=== PATIENT | male | born 1955 | race Caucasian/White ===

== ENCOUNTER 2019-02-07 19:33 | Emergency (ER) | payer MEDICARE, MEDICAID ==
[2019-02-07] MEDS ORDERED: Ketorolac 60 MG/2 ML SDV IM ONE (20:11)
--- NOTE | 2019-02-07 20:14 | EDM.PDOC ---
ED HPI GENERAL MEDICAL PROBLEM - General Chief Complaint: Chest Pain Stated Complaint: CHEST PAINS Time Seen by Provider: 02/07/19 20:11 Source of Information: Reports: Patient, Old Records, RN Notes Reviewed History Limitations: Reports: No Limitations - History of Present Illness INITIAL COMMENTS - FREE TEXT/NARRATIVE: 63-year-old gentleman presents to emergency department today complaint of chest pain pain gets worse with a deep breath and then exacerbated by letting his breath out so intense to take shallow breaths. He is not nauseated no diaphoresis she does feel short of breath. He recently had an extensive cardiac workup done 15 days prior for chest pain was admitted to [facility]. Workup included stress test myocardial perfusion test which was negative as well as CT scan of the chest to rule out pulmonary embolism also negative consultation with cardiology and serial troponins which were all negative, felt the chest pain was probably not cardiac in nature. Treatments INDUSTRIAL RADIOGRAPHER: Reports: Acetaminophen, EKG Left Chest Pain Score (Numeric/FACES): 5 - Related Data Allergies Allergy/AdvReac Type Severity Reaction Status Date / Time bee venom protein (honey bee) Allergy Swelling Verified 02/07/19 19:42 ibuprofen [From Advil] Allergy Rash Verified 02/07/19 19:42 morphine Allergy Cannot Verified 02/07/19 19:42 Remember Home Meds: Home Meds Acetaminophen [Tylenol Extra Strength] 100 mg PO Q4H PRN 02/07/19 [History] Lisinopril 10 mg PO DAILY 02/07/19 [History] Mg Trisilicate/AlH/NahCO3/AA [Gaviscon 80-14.2 MG] 2 tab PO BID 02/07/19 [ History] Omeprazole 20 mg PO DAILY 02/07/19 [History] Past Medical History HEENT History: Reports: Impaired Vision Gastrointestinal History: Reports: Other (See Below) Other Gastrointestinal History: gastric reflux Psychiatric History: Reports: Addiction, Other (See Below) Other Psychiatric History: Meth, 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 - Infectious Disease History Infectious Disease History: Reports: Chicken Pox - Past Surgical History Musculoskeletal Surgical History: Reports: Other (See Below) Other Musculoskeletal Surgeries/Procedures:: Fussed l ankle r hip replacement x 2 r shoulder surgery lead r neck Social & Family History - Tobacco Use Smoking Status *Q: Current Every Day Smoker Years of Tobacco use: 25 Packs/Tins Daily: 0.2 Used Tobacco, but Quit: No Second Hand Smoke Exposure: Yes - Caffeine Use Caffeine Use: Reports: Coffee - Alcohol Use Days Per Week of Alcohol Use: 0 - Recreational Drug Use Recreational Drug Use: Yes Drug Use in Last 12 Months: Yes Recreational Drug Type: Reports: Marijuana/Hashish, Methamphetamine Recreational Drug Use Frequency: Daily ED ROS GENERAL - Review of Systems Review Of Systems: See Below Constitutional: Reports: No Symptoms HEENT: Reports: No Symptoms Respiratory: Reports: Shortness of Breath Cardiovascular: Reports: Chest Pain GI/Abdominal: Reports: No Symptoms ED EXAM, GENERAL - Physical Exam Exam: See Below Exam Limited By: No Limitations General Appearance: Alert, WD/WN, No Apparent Distress Throat/Mouth: No Airway Compromise Neck: Normal Inspection, Supple, Non-Tender, Full Range of Motion Respiratory/Chest: No Respiratory Distress, Lungs Clear, Normal Breath Sounds, No Accessory Muscle Use, Chest Non-Tender Cardiovascular: Regular Rate, Rhythm, No Murmur GI/Abdominal: Soft, Non-Tender Course - Vital Signs Last Recorded V/S: Last Vital Signs Temp 98.0 F 02/07/19 19:33 Pulse 70 02/07/19 21:35 Resp 20 02/07/19 21:13 BP 159/68 H 02/07/19 21:35 Pulse Ox 96 02/07/19 21:35 - Orders/Labs/Meds Orders: Active Orders 24 hr Category Date Time Status Cardiac Monitoring [RC] .As Directed Care 02/07/19 20:10 Active Labs: Laboratory Tests 02/07/19 02/07/19 02/07/19 Range/Units 20:23 20:23 20:23 WBC 8.2 (4.5-11.0) K/uL RBC 4.27 L (4.30-5.90) M/uL Hgb 13.1 (12.0-15.0) g/dL Hct 39.1 L (40.0-54.0) % MCV 92 (80-98) fL MCH 31 (27-31) pg MCHC 34 (32-36) % Plt Count 258 (150-400) K/uL Neut % (Auto) 60 (36-66) % Lymph % (Auto) 27 (24-44) % [place] % (Auto) 10 H (2-6) % Eos % (Auto) 2 (2-4) % Baso % (Auto) 1 (0-1) % D-Dimer, Quantitative < 100 (0.0-400.0) ng/mL Sodium 141 (140-148) mmol/L Potassium 4.1 (3.6-5.2) mmol/L Chloride 106 (100-108) mmol/L Carbon Dioxide 27 (21-32) mmol/L Anion Gap 8.4 (5.0-14.0) mmol/L BUN 25 H (7-18) mg/dL Creatinine 1.0 (0.8-1.3) mg/dL Est Cr Clr Drug Dosing 70.00 mL/min Estimated GFR (MDRD) > 60 (>60) Glucose 110 H (74-106) mg/dL Calcium 8.7 (8.5-10.1) mg/dL Total Bilirubin 0.2 (0.2-1.0) mg/dL AST 83 H (15-37) U/L ALT 186 H (12-78) U/L Alkaline Phosphatase 63 (46-116) U/L CK-MB (CK-2) 2.3 (0-3.6) mg/mL Troponin I < 0.017 (0.000-0.056) ng/mL Total Protein 6.9 (6.4-8.2) g/dL Albumin 3.4 (3.4-5.0) g/dL Globulin 3.5 (2.3-3.5) g/dL Albumin/Globulin Ratio 1.0 L (1.2-2.2) Lipase 197 (73-393) U/L Meds: Medications Discontinued Medications Generic Name Dose Route Start Last Admin Trade Name Jorgeq PRN Reason Stop Dose Admin Ketorolac Tromethamine 60 mg 02/07/19 20:11 02/07/19 20:19 Toradol IM 02/07/19 20:12 60 mg ONETIME ONE Administration Departure - Departure Time of Disposition: 21:59 Disposition: DC/Tfer to Inpt Rehab Fac 62 Reason for Transfer *Q: Other Condition: Fair Clinical Impression: Pleurisy Referrals: PCP,None [Primary Care Provider] - Forms: ED Department Discharge Additional Instructions: Recommend ibuprofen 600 mg 3 times a day for the next 3-4 days, follow-up primary care in 3-4 days if no improvement - My Orders Last 24 Hours: My Active Orders 02/07/19 20:10 Cardiac Monitoring [RC] .As Directed - Assessment/Plan Last 24 Hours: My Active Orders 02/07/19 20:10 Cardiac Monitoring [RC] .As Directed Plan: Assessment Acuity = acute Site and laterality = pleurisy Etiology = unknown etiology Manifestations = none Location of injury = Home Lab values = CBC unremarkable AST elevated 83 PLT elevated 86 consistent elevated liver enzymes, troponin CK-MB d-dimer all negative chest x-ray process EKG done EMS demonstrates normal sinus rhythm no signs of ischemia Plan He had good improvement with Toradol provided in the ED plan to do ibuprofen 600 mg 3 times a day for the next couple of days until improvement follow-up primary care 3-5 days if not better This note was dictated using [employer] voice recognition software please call with any questions on syntax or grammar.
--- NOTE | 2019-02-07 21:45 | CRLCR ---
INDICATION: Chest pain TECHNIQUE: Chest 1 view COMPARISON: None FINDINGS: Cardiovascular and mediastinum: Heart size and vasculature are normal in caliber and appearance. Lungs and pleural spaces: Lungs are clear. No sign of infiltrate or mass. No sign of pleural effusion. No pneumothorax. Bones and soft tissues: No significant findings. IMPRESSION: No acute or significant findings. Dictated by Isidoro Garza MD @ Feb 07 2019 9:44PM Signed by Dr. Isidoro Garza @ Feb 07 2019 9:44PM
== END 2019-02-07 22:24 ==
LOC: JP.ED 19:33
DX: R09.1 Pleurisy (principal); F17.210 Nicotine dependence, cigarettes, uncomplicated; Z79.899 Other long term (current) drug therapy; Z91.030 Bee allergy status; Z88.5 Allergy status to narcotic agent
CPT/HCPCS: 36415; 71045; 80053; 82553; 83690; 84484; 85025; 85379; 96372; 99284; 99285; J1885

== ENCOUNTER 2020-11-24 23:46 | Observation (INO) | payer MEDICAID, MEDICARE ==
[2020-11-24] MEDS ORDERED: Sodium Chloride 0.9% 10 ML Syringe FLUSH PRN (23:48)
[2020-11-24] MEDS ORDERED: Sodium Chloride 0.9% 500 ML IV ONE (23:48)
--- NOTE | 2020-11-25 00:06 | EDM.PDOC ---
ED HPI GENERAL MEDICAL PROBLEM - General Chief Complaint: Neuro Symptoms/Deficits Stated Complaint: MEDICAL VIA [place] Time Seen by Provider: 11/24/20 23:47 Source of Information: Reports: Patient, EMS History Limitations: Reports: No Limitations - History of Present Illness INITIAL COMMENTS - FREE TEXT/NARRATIVE: Edward is a 65-year-old male presenting from [facility] via [facility] for evaluation of acute onset of left-sided facial and left upper extremity numbness and left facial droop. The patient started having symptoms tonight and went to the nurse at [facility] who notified EMS as a possible stroke. The patient has had several episodes similarly that have only lasted a few seconds at a time. This is persisted for more than half an hour. Patient has a history of methamphetamine use but has been in [facility] detox and treatment since 11/19/2020. The initial [place] stroke score reported by EMS was negative, however, upon arrival he has a significant facial droop and new sided numbness so I called a code stroke. The patient was in directly down to CT for a CT of the head without contrast. She will NIH stroke score is 2 with one point being for facial droop and the other for the left upper extremity numbness. Patient is vitally stable. - Related Data Allergies Allergy/AdvReac Type Severity Reaction Status Date / Time bee venom protein (honey bee) Allergy Swelling Verified 11/25/20 00:02 ibuprofen [From Advil] Allergy Rash Verified 11/25/20 00:02 morphine Allergy Cannot Verified 11/25/20 00:02 Remember Home Meds: Home Meds Acetaminophen [Tylenol Extra Strength] 100 mg PO Q4H PRN 02/07/19 [History] Lisinopril 10 mg PO DAILY 02/07/19 [History] Celecoxib [CeleBREX] 200 mg PO DAILY 11/25/20 [History] Past Medical History HEENT History: Reports: Impaired Vision Gastrointestinal History: Reports: Other (See Below) Other Gastrointestinal History: gastric reflux Psychiatric History: Reports: Addiction, Other (See Below) Other Psychiatric History: Meth, 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 - Infectious Disease History Infectious Disease History: Reports: Chicken Pox - Past Surgical History Musculoskeletal Surgical History: Reports: Other (See Below) Other Musculoskeletal Surgeries/Procedures:: Fussed l ankle r hip replacement x 2 r shoulder surgery lead r neck Social & Family History - Caffeine Use Caffeine Use: Reports: Coffee ED ROS GENERAL - Review of Systems Review Of Systems: See Below Constitutional: Reports: No Symptoms HEENT: Reports: No Symptoms Respiratory: Reports: No Symptoms Cardiovascular: Reports: No Symptoms Endocrine: Reports: No Symptoms GI/Abdominal: Reports: No Symptoms : Reports: No Symptoms Musculoskeletal: Reports: No Symptoms Skin: Reports: No Symptoms Neurological: Reports: Numbness (Left face and left upper extremity), Paresthesia (Upper extremity), Weakness (Facial droop on left with loss of nasolabial fold and asymmetric smile). Denies: Difficulty Walking Psychiatric: Reports: No Symptoms Hematologic/Lymphatic: Reports: No Symptoms Immunologic: Reports: No Symptoms ED EXAM, NEURO - Physical Exam Exam: See Below Exam Limited By: No Limitations General Appearance: Alert, Anxious Eye Exam: Bilateral Eye: EOMI, PERRL Throat/Mouth: Normal Inspection, Normal Lips, Normal Oropharynx, Normal Voice, No Airway Compromise Head Exam: Atraumatic, Normocephalic Neck: Normal Inspection, Supple, Non-Tender, Full Range of Motion. No: Carotid Bruit Respiratory/Chest: No Respiratory Distress, Lungs Clear, Normal Breath Sounds Cardiovascular: Normal Peripheral Pulses, Regular Rate, Rhythm GI/Abdominal: Normal Bowel Sounds, Soft, Non-Tender Neurological: Alert, Normal Dorsiflexion, Normal Plantar Flexion, Normal Gait, Normal Reflexes, Oriented x 3, Abnormal Light Touch (Decreased sensation in the left face excluding the forehead and left upper extremity.), Abnormal Motor (Asymmetric smile and loss of nasolabial fold.) Back Exam: Normal Inspection Extremities: Normal Inspection, Normal Range of Motion Psychiatric: Anxious Skin Exam: Warm, Dry, Intact, Normal Color #1 Interpretation EKG Date: 11/25/20 Time: 00:22 Rhythm: NSR Rate (Beats/Min): 80 [place]: Normal P-Wave: Present QRS: Normal ST-T: Normal QT: Normal Comparison: NA - No Prior EKG Course - Vital Signs Last Recorded V/S: Last Vital Signs Temp 36.6 C 11/25/20 00:06 Pulse 68 11/25/20 02:15 Resp 19 11/25/20 02:15 BP 129/57 L 11/25/20 02:15 Pulse Ox 97 11/25/20 02:15 - Orders/Labs/Meds Orders: Active Orders 24 hr Category Date Time Status Assess Neurological Status [RC] CONTINUOUS Care 11/24/20 23:48 Active Blood Glucose Check, Bedside [RC] STAT Care 11/24/20 23:48 Active Cardiac Monitoring [RC] CONTINUOUS Care 11/24/20 23:48 Active Communication Order [RC] STAT Care 11/24/20 23:48 Active EKG Documentation Completion [RC] ASDIRECTED Care 11/24/20 23:48 Active Height and Weight [RC] UPON Care 11/24/20 23:48 Active NIH Stroke Scale [RC] Q15M Care 11/24/20 23:48 Active NIH Stroke Scale [RC] STAT Care 11/24/20 23:48 Active Nursing Bedside Swallow Screen [RC] STAT Care 11/24/20 23:48 Active Oxygen Therapy, ED [RC] ASDIRECTED Care 11/24/20 23:48 Active Peripheral IV Care [RC] . DIRECTED Care 11/24/20 23:48 Active Vital Signs [RC] Q15M Care 11/24/20 23:48 Active Ang Head w Cont [MR] Stat Exams 11/25/20 00:31 Ordered Ang Neck w Cont [MR] Stat Exams 11/25/20 00:31 Ordered Aspirin [Ecotrin] Med 11/25/20 02:22 Once 325 mg PO ONETIME ONE Clopidogrel [Plavix] Med 11/25/20 02:22 Once 300 mg PO ONETIME ONE Sodium Chloride 0.9% [Normal Saline] 500 ml Med 11/24/20 23:48 Active IV BOLUS Sodium Chloride 0.9% [Saline Flush] Med 11/24/20 23:48 Active 10 ml FLUSH ASDIRECTED PRN Peripheral IV Insertion Adult [OM.PC] Stat Oth 11/24/20 23:48 Ordered Peripheral IV Insertion Adult [OM.PC] Stat Oth 11/24/20 23:48 Ordered Resuscitation Status Stat Resus Stat 11/24/20 23:48 Ordered EKG 12 Lead [EK] Stat Ther 11/24/20 23:48 Ordered Medication Orders Sodium Chloride (Normal Saline) 500 mls @ 150 mls/hr IV BOLUS ONE Stop: 11/25/20 03:07 Last Admin: 11/25/20 01:20 Dose: 150 mls/hr Documented by: JUNIOR Sodium Chloride (Sodium Chloride 0.9% 10 Ml Syringe) 10 ml FLUSH ASDIRECTED PRN PRN Reason: Keep Vein Open Labs: Laboratory Tests 11/24/20 11/24/20 11/24/20 Range/Units 00:03 00:03 00:03 WBC 7.3 (4.5-11.0) K/uL RBC 4.59 (4.30-5.90) M/uL Hgb 13.6 (12.0-15.0) g/dL Hct 41.4 (40.0-54.0) % MCV 90 (80-98) fL MCH 30 (27-31) pg MCHC 33 (32-36) % Plt Count 276 (150-400) K/uL Neut % (Auto) 65 (36-66) % Lymph % (Auto) 17 L (24-44) % [place] % (Auto) 13 H (2-6) % Eos % (Auto) 4 (2-4) % Baso % (Auto) 0 (0-1) % PT 10.0 (9.5-12.0) sec INR 0.92 (0.80-1.20) APTT 24.3 L (27.0-36.0) sec Sodium 142 (140-148) mmol/L Potassium 4.1 (3.6-5.2) mmol/L Chloride 104 (100-108) mmol/L Carbon Dioxide 26 (21-32) mmol/L Anion Gap 11.6 (5.0-14.0) mmol/L BUN 19 H (7-18) mg/dL Creatinine 1.1 (0.8-1.3) mg/dL Est Cr Clr Drug Dosing 62.03 mL/min Estimated GFR (MDRD) > 60 (>60) Glucose 107 H (74-106) mg/dL Calcium 8.9 (8.5-10.1) mg/dL Total Bilirubin 0.3 (0.2-1.0) mg/dL AST 24 (15-37) U/L ALT 46 D (12-78) U/L Alkaline Phosphatase 69 (46-116) U/L Troponin I < 0.017 (0.000-0.056) ng/mL Total Protein 7.2 (6.4-8.2) g/dL Albumin 3.7 (3.4-5.0) g/dL Globulin 3.5 (2.3-3.5) g/dL Albumin/Globulin Ratio 1.1 L (1.2-2.2) Influenza Type A RNA (NEGATIVE) RSV RNA (INAAT) (NEGATIVE) Influenza Type B RNA (NEGATIVE) SARS-CoV-2 RNA (SANJEEV) (NEGATIVE) 11/25/20 Range/Units 00:11 WBC (4.5-11.0) K/uL RBC (4.30-5.90) M/uL Hgb (12.0-15.0) g/dL Hct (40.0-54.0) % MCV (80-98) fL MCH (27-31) pg MCHC (32-36) % Plt Count (150-400) K/uL Neut % (Auto) (36-66) % Lymph % (Auto) (24-44) % [place] % (Auto) (2-6) % Eos % (Auto) (2-4) % Baso % (Auto) (0-1) % PT (9.5-12.0) sec INR (0.80-1.20) APTT (27.0-36.0) sec Sodium (140-148) mmol/L Potassium (3.6-5.2) mmol/L Chloride (100-108) mmol/L Carbon Dioxide (21-32) mmol/L Anion Gap (5.0-14.0) mmol/L BUN (7-18) mg/dL Creatinine (0.8-1.3) mg/dL Est Cr Clr Drug Dosing mL/min Estimated GFR (MDRD) (>60) Glucose (74-106) mg/dL Calcium (8.5-10.1) mg/dL Total Bilirubin (0.2-1.0) mg/dL AST (15-37) U/L ALT (12-78) U/L Alkaline Phosphatase (46-116) U/L Troponin I (0.000-0.056) ng/mL Total Protein (6.4-8.2) g/dL Albumin (3.4-5.0) g/dL Globulin (2.3-3.5) g/dL Albumin/Globulin Ratio (1.2-2.2) Influenza Type A RNA Negative (NEGATIVE) RSV RNA (INAAT) Negative (NEGATIVE) Influenza Type B RNA Negative (NEGATIVE) SARS-CoV-2 RNA (SANJEEV) Positive H (NEGATIVE) Meds: Medications Generic Name Dose Route Start Last Admin Trade Name Chase PRN Reason Stop Dose Admin Sodium Chloride 500 mls @ 150 mls/hr 11/24/20 23:48 11/25/20 01:20 Normal Saline IV 11/25/20 03:07 150 mls/hr BOLUS ONE Administration Sodium Chloride 10 ml 11/24/20 23:48 Sodium Chloride 0.9% 10 Ml Syringe FLUSH ASDIRECTED PRN Keep Vein Open - Re-Assessments/Exams Free Text/Narrative Re-Assessment/Exam: 11/25/20 00:24 I discussed the case with the stroke neurologist at [facility], Dr. Denis recommended a CT angiogram of the head and neck to evaluate for possible smaller vessel clot. We will arrange this. He says if there is a smaller vessel clot to call him and arrange for transfer otherwise the patient can be started on a full dose of aspirin, Plavix 300 mg, and admitted here for observation to make sure that he tolerates the patient. 11/25/20 02:23 CT angiogram of the brain and neck show moderate to high-grade stenosis in the right posterior cerebral artery at the proximal P2 segment. The remainder of the posterior circulation is widely patent. There is no hemodynamically significant stenosis in the anterior circulation. There is atherosclerotic plaques in the proximal internal carotid arteries bilaterally without hemodynamically significant extracranial carotid or vertebral stenosis. Calcified subcarinal lymph nodes consistent with old granulomatous disease. Based on the recommendations of Dr. Denis stroke neurologist at [facility], patient was given aspirin 325 mg p.o. add Plavix 300 mg p.o. Will arrange for him to be admitted overnight on observation. Patient should follow-up as an outpatient for further evaluation of TIAs and stroke. The case was discussed with Dr. Steve Martinez to arrange for the admission. Departure - Departure Time of Disposition: 02:25 Disposition: Refer to Observation Clinical Impression: Transient ischemic attack, Weakness on left side of face, Left facial numbness, Left upper extremity numbness - Discharge Information Referrals: PCP,None [Primary Care Provider] - Forms: ED Department Discharge Sepsis Event Note (ED) - Focused Exam Vital Signs: Vital Signs Temp Pulse Resp BP Pulse Ox 11/25/20 02:15 68 19 129/57 L 97 11/25/20 02:00 72 16 130/58 L 97 04/12/21 01:45 75 19 119/50 L 97 11/25/20 01:30 78 15 126/51 L 97 11/25/20 01:15 74 20 120/53 L 97 11/25/20 00:30 77 12 170/65 H 95 11/25/20 00:06 36.6 C 78 14 174/77 H 95 11/25/20 00:03 80 17 158/72 H 93 L - My Orders Last 24 Hours: My Active Orders 11/24/20 23:48 Assess Neurological Status [RC] CONTINUOUS Blood Glucose Check, Bedside [RC] STAT Cardiac Monitoring [RC] CONTINUOUS Communication Order [RC] STAT EKG Documentation Completion [RC] ASDIRECTED Height and Weight [RC] UPON NIH Stroke Scale [RC] Q15M NIH Stroke Scale [RC] STAT Nursing Bedside Swallow Screen [RC] STAT Oxygen Therapy, ED [RC] ASDIRECTED Peripheral IV Care [RC] . DIRECTED Vital Signs [RC] Q15M Sodium Chloride 0.9% [Normal Saline] 500 ml IV BOLUS Sodium Chloride 0.9% [Saline Flush] 10 ml FLUSH ASDIRECTED PRN Peripheral IV Insertion Adult [OM.PC] Stat Peripheral IV Insertion Adult [OM.PC] Stat Resuscitation Status Stat EKG 12 Lead [EK] Stat 11/25/20 00:31 Ang Head w Cont [MR] Stat Ang Neck w Cont [MR] Stat 11/25/20 02:22 Aspirin [Ecotrin] 325 mg PO ONETIME ONE Clopidogrel [Plavix] 300 mg PO ONETIME ONE - Assessment/Plan Last 24 Hours: My Active Orders 11/24/20 23:48 Assess Neurological Status [RC] CONTINUOUS Blood Glucose Check, Bedside [RC] STAT Cardiac Monitoring [RC] CONTINUOUS Communication Order [RC] STAT EKG Documentation Completion [RC] ASDIRECTED Height and Weight [RC] UPON NIH Stroke Scale [RC] Q15M NIH Stroke Scale [RC] STAT Nursing Bedside Swallow Screen [RC] STAT Oxygen Therapy, ED [RC] ASDIRECTED Peripheral IV Care [RC] . DIRECTED Vital Signs [RC] Q15M Sodium Chloride 0.9% [Normal Saline] 500 ml IV BOLUS Sodium Chloride 0.9% [Saline Flush] 10 ml FLUSH ASDIRECTED PRN Peripheral IV Insertion Adult [OM.PC] Stat Peripheral IV Insertion Adult [OM.PC] Stat Resuscitation Status Stat EKG 12 Lead [EK] Stat 11/25/20 00:31 Ang Head w Cont [MR] Stat Ang Neck w Cont [MR] Stat 11/25/20 02:22 Aspirin [Ecotrin] 325 mg PO ONETIME ONE Clopidogrel [Plavix] 300 mg PO ONETIME ONE
--- NOTE | 2020-11-25 00:15 | CRLCT ---
INDICATION: Left-sided weakness and facial droop TECHNIQUE: Head CT without contrast. COMPARISON: None FINDINGS: CSF spaces: Within normal limits for age. Brain parenchyma: Normal youssef-white junction. No sign of mass, hemorrhage, or midline shift. Skull base and calvarium: The visualized paranasal sinuses and mastoid air cells demonstrate no acute or significant findings. The visualized orbits are grossly unremarkable. No skull fractures. No acute findings. Please note that all CT scans at this facility use dose modulation, iterative reconstruction, and/or weight-based dosing when appropriate to reduce radiation dose to as low as reasonably achievable. Dictated by Kia Marcelino MD @ Nov 25 2020 12:10AM Signed by Dr. Kia Marcelino @ Nov 25 2020 12:13AM
[2020-11-25 01:57] LABS: CORONAVIRUS COVID-19 NAA POSITIVE (NEGATIVE)
[2020-11-25] MEDS ORDERED: Clopidogrel 75 MG Tab PO ONE ×2 (02:22→16:05)
[2020-11-25] MEDS ORDERED: Aspirin 325 MG Tab.EC PO ONE (02:22)
[2020-11-25] MEDS ORDERED: Sodium Chloride 0.9% 100 ML IV STA (03:04)
[2020-11-25] MEDS ORDERED: Iopamidol 755 Mg/ML 100 ML Bottle IV STA (03:04)
[2020-11-25] MEDS ORDERED: Acetaminophen 500 MG Tab PO PRN (03:27)
[2020-11-25] MEDS ORDERED: Sodium Chloride 0.9% 1,000 ML IV SCH (03:30)
--- NOTE | 2020-11-25 04:55 | HP ---
CHIEF COMPLAINT: Stroke symptoms with left-sided involvement. HISTORY OF PRESENT ILLNESS: A 65-year-old who is in treatment for methamphetamine and alcohol at [facility], had a negative COVID test prior to coming in. He was lying in bed at 9:00 p.m., suddenly started having stroke symptoms with numbness and drooping of left side of his face, with numbness of his left leg and hand and arm. He notified the nurse, who brought him in by ambulance. He was noted to have stroke symptoms. CT brain was unremarkable. The emergency room physician did talk to Neurology at [facility] who recommended getting a CTA, which showed no evidence of clot. Did have [id number] grade stenosis right posterior cerebral artery. The remainder of the circulation was patent and they recommended Plavix and aspirin which was started in the emergency room. His symptoms have already improved. His leg is pretty much back to normal. His hand still feels a little bit funny compared to the right side, but is better, and the left side of his face is still numb with facial droop, which has not really changed. He denies any trouble speaking or swallowing. He does have some discomfort in the left side, but denies any chest pain or shortness of breath. PAST MEDICAL HISTORY: 1. Methamphetamine and alcohol use in the past. 2. Tobacco dependence. 3. Essential hypertension. 4. Fusion to his left ankle in the past. 5. Two hip replacements in the past. CURRENT MEDICATIONS: 1. Celebrex 200 mg daily. 2. Lisinopril 10 mg daily. ALLERGIES: BEE VENOM, IBUPROFEN, MORPHINE. SOCIAL HISTORY: 1. Smokes, a pack lasts him about a week. He has been trying to cut back and quit now he states. 2. History of alcohol and methamphetamine use and abuse. FAMILY HISTORY: Father had heart disease and also multiple strokes. REVIEW OF SYSTEMS: Denies headaches, vision changes, upper respiratory symptoms. No chest pain, shortness of breath, cough, nausea, vomiting, diarrhea, or constipation. No urinary problems reported. No swelling in his legs. No skin problems reported. Neurologic symptoms as above. OBJECTIVE: VITAL SIGNS: Pulse 60 to 70s, blood pressure 120/53, respirations 20, O2 saturation 97% on room air. HEENT: Pharynx is clear. NECK: Supple. No adenopathy, thyromegaly, JVD, or carotid bruits. LUNGS: Clear. HEART: Regular without murmurs. ABDOMEN: Soft, nontender. No mass or organomegaly palpated. EXTREMITIES: No edema. SKIN: Does have some dry skin on his feet. NEUROLOGIC: He does have a facial droop and numbness to the left side of his face. The rest of his cranial nerves seem to be okay. He does have some subjective numbness of the left arm and it is slightly weaker than the right magnet valve assembler and biceps strength. Dorsiflexion, plantar flexion of his feet were symmetric bilaterally and intact sensation to his lower extremities. LABORATORY DATA: CTA showed no evidence of clot. Did have ufiequrl-ju-giqx grade stenosis of right posterior cerebral artery, had incidental finding of calcified subcarinal lymph nodes. Old granulomatous disease. White count 7.3, hemoglobin 13.6, platelets 276,000. INR 0.92. Sodium 142, potassium 4.1, chloride 104, BUN was 19, creatinine 1.1, glucose 107. Liver functions were normal. Influenza was negative. COVID-19 was positive. ASSESSMENT: 1. Stroke symptoms with left-sided involvement. Emergency room physician did talk to the neurologist at [facility], recommend Plavix and aspirin which was started in the emergency room, which will continue. Transfer his care to the hospitalist service. We will admit him under observation. It sounds like if his symptoms do resolve, that he could be discharged to follow up as an outpatient. He does have the right posterior cerebral artery stenosis. 2. Essential hypertension. We will continue with lisinopril. 3. Methamphetamine and alcohol use. Currently at [facility]. 4. Asymptomatic COVID infection. Steve Martinez MD /[id number]
[2020-11-25] MEDS ORDERED: Lisinopril 10 MG Tab PO SCH (09:00)
[2020-11-25] MEDS ORDERED: Aspirin 325 MG Tab.EC PO SCH (09:00)
--- NOTE | 2020-11-25 14:34 | CRLCT ---
Final Report: INDICATION: Acute stroke, left facial weakness and numbness. TECHNIQUE: After standard noncontrast head CT, high resolution axial CT images acquired through the head and neck following rapid intravenous administration of iodinated contrast. Multiplanar MIPS of cranial and cervical vasculature performed. FINDINGS: Noncontrast head CT: There is no intracranial hemorrhage or fluid collection. The youssef-white matter differentiation is maintained. There are nonspecific white matter hypodensities commonly seen with cerebral small vessel disease. The ventricles are of normal morphology. The basal cisterns are clear. CTA head: There is scattered intracranial atherosclerotic disease. There is a near occlusion of the right TEAM ASSEMBLER, P2 segment. There is no large vessel occlusion. There is no cerebral aneurysm or evidence for vascular malformation. CTA neck: Carotid arteries: There is irregular atherosclerotic plaque in the proximal ICAs bilaterally. There is no significant stenosis by NASCET criteria. There is no evidence for dissection. Vertebral arteries: There is no significant stenosis. There is no evidence for dissection. The soft tissues of the neck are within normal limits. Degenerative changes are noted in the cervical spine. The lung apices are clear. IMPRESSION: Scattered intracranial atherosclerotic disease and near occlusion right TEAM ASSEMBLER P2 segment. Irregular proximal ICA plaque bilaterally without significant stenosis. Kwame Ty MD Neurointerventional Radiologist [facility] Please note that all CT scans at this facility use dose modulation, iterative reconstruction, and/or weight-based dosing when appropriate to reduce radiation dose to as low as reasonably achievable. Dictated by Kwame Ty MD @ Nov 25 2020 8:06AM Signed by: Kwame Ty MD @11/25/2020 12:52:26 PM (Electronic Signature) MTDD
--- NOTE | 2020-11-25 14:35 | CRLCT ---
Final Report: INDICATION: Acute stroke, left facial weakness and numbness. TECHNIQUE: After standard noncontrast head CT, high resolution axial CT images acquired through the head and neck following rapid intravenous administration of iodinated contrast. Multiplanar MIPS of cranial and cervical vasculature performed. FINDINGS: Noncontrast head CT: There is no intracranial hemorrhage or fluid collection. The youssef-white matter differentiation is maintained. There are nonspecific white matter hypodensities commonly seen with cerebral small vessel disease. The ventricles are of normal morphology. The basal cisterns are clear. CTA head: There is scattered intracranial atherosclerotic disease. There is a near occlusion of the right PHOTOGRAPHIC ARTIST, P2 segment. There is no large vessel occlusion. There is no cerebral aneurysm or evidence for vascular malformation. CTA neck: Carotid arteries: There is irregular atherosclerotic plaque in the proximal ICAs bilaterally. There is no significant stenosis by NASCET criteria. There is no evidence for dissection. Vertebral arteries: There is no significant stenosis. There is no evidence for dissection. The soft tissues of the neck are within normal limits. Degenerative changes are noted in the cervical spine. The lung apices are clear. IMPRESSION: Scattered intracranial atherosclerotic disease and near occlusion right PHOTOGRAPHIC ARTIST P2 segment. Irregular proximal ICA plaque bilaterally without significant stenosis. Kwame Ty MD Neurointerventional Radiologist [facility] Please note that all CT scans at this facility use dose modulation, iterative reconstruction, and/or weight-based dosing when appropriate to reduce radiation dose to as low as reasonably achievable. Dictated by Kwame Ty MD @ Nov 25 2020 8:07AM Signed by: Kwame Ty MD @11/25/2020 12:52:53 PM (Electronic Signature) MTDD
--- NOTE | 2020-11-25 16:12 | PCM.DCSUM1 ---
Discharge Summary - Hospital Course Brief History: Mr. Enciso is a 65-year-old gentleman who was admitted through the emergency department with TIA symptoms including left facial and upper extremity weakness. - Discharge Data Discharge Date: 11/25/20 Discharge Disposition: Home, Self-Care 01 Condition: Fair - Referral to Home Health Primary Care Physician: PCP None - Discharge Diagnosis/Problem(s) (1) Transient ischemic attack SNOMED Code(s): 096977336 ICD Code: G45.9 - TRANSIENT CEREBRAL ISCHEMIC ATTACK, UNSPECIFIED Status: Acute Current Visit: Yes (2) Weakness on left side of face SNOMED Code(s): 535478265 ICD Code: R29.810 - FACIAL WEAKNESS Status: Acute Current Visit: Yes (3) Left upper extremity numbness SNOMED Code(s): 039517160 ICD Code: R20.0 - ANESTHESIA OF SKIN Status: Acute Current Visit: Yes (4) Tobacco use SNOMED Code(s): 842564989 ICD Code: Z72.0 - TOBACCO USE Status: Chronic Current Visit: No (5) Hx of drug abuse SNOMED Code(s): 006974364 ICD Code: F19.11 - OTHER PSYCHOACTIVE SUBSTANCE ABUSE, IN REMISSION Status: Chronic Current Visit: No (6) History of alcohol abuse SNOMED Code(s): 617838071 ICD Code: F10.11 - ALCOHOL ABUSE, IN REMISSION Status: Chronic Current Visit: No - Patient Summary/Data Hospital Course: Mr. Enciso is a 65-year-old male presenting from [facility] via [facility] for evaluation of acute onset of left-sided facial and left upper extremity numbness and left facial droop. The patient started having symptoms and went to the nurse at [facility] who notified EMS as a possible stroke. The patient has had several episodes similarly that have only lasted a few seconds at a time. This is persisted for more than half an hour. Patient has a history of methamphetamine use but has been in [facility] detox and treatment since 11/19/2020. The initial [place] stroke score reported by EMS was negative, however, upon arrival he has a significant facial droop and new sided numbness. The patient was in directly down to CT for a CT of the head without contrast. NIH stroke score is 2 with one point being for facial droop and the other for the left upper extremity numbness. Initial CT scan of the head without contrast was unremarkable. Findings and situation were reviewed with the neurologist on- call in [place]. They recommended CT scan angiogram of the head and neck. This study was performed and did show a near occlusion of the RCA P2 segment, no other significant blockage. Per recommendations from neurology he was given aspirin as well as a loading dose of Plavix 300 mg. He was admitted to the hospital to observation status for further monitoring of his neurologic status. Prior to admission COVID-19 testing was obtained and he was found to be COVID-19 positive. He had only mild symptoms with myalgias, no fever or respiratory symptoms. Following day he had had significant improvement in his neurologic function with only very mild residual left facial and left upper extremity weakness. We discussed further treatment for COVID-19 with monoclonal antibody which he refused. Plan had been for additional monitoring overnight and then discharged home on the which the patient refused and requested that he be discharged home this afternoon. He will be continued on aspirin as well as Plavix 75 mg daily. He should present to an emergency room if he notes recurrent neurologic symptoms. Follow-up appointment will be scheduled with his primary care provider within the next few days. Neurology appointment should be scheduled for him as soon as possible. - Patient Instructions Diet: Usual Diet as Tolerated Activity: As Tolerated Other/Special Instructions: Please schedule follow-up appointment with patient's primary care provider this week. Primary care provider should arrange for neurology consult as soon as possible. - Discharge Plan *PRESCRIPTION DRUG MONITORING PROGRAM REVIEWED*: Not Applicable *COPY OF PRESCRIPTION DRUG MONITORING REPORT IN PATIENT JOHN: Not Applicable Prescriptions/Med Rec: Aspirin 81 mg PO DAILY #100 tab.chew Clopidogrel [Plavix] 75 mg PO DAILY #30 tablet Home Medications: Home Meds Acetaminophen [Tylenol Extra Strength] 100 mg PO Q4H PRN 02/07/19 [History] Lisinopril 10 mg PO DAILY 02/07/19 [History] Aspirin 81 mg PO DAILY #100 tab.chew 11/25/20 [Rx] Celecoxib [CeleBREX] 200 mg PO DAILY 11/25/20 [History] Clopidogrel [Plavix] 75 mg PO DAILY #30 tablet 11/25/20 [Rx] - Discharge Summary/Plan Comment DC Time >30 min.: No - Patient Data Vitals - Most Recent: Last Vital Signs Temp 97.3 F 11/25/20 14:42 Pulse 78 11/25/20 14:42 Resp 16 11/25/20 14:42 BP 157/74 H 11/25/20 14:42 Pulse Ox 95 11/25/20 14:42 Weight - Most Recent: 197 lb 0.011 oz I&O - Last 24 hours: Intake & Output 11/25/20 11/25/20 11/25/20 06:59 14:59 22:59 Intake Total 480 Output Total 400 Balance 80 Lab Results - Last 24 hrs: Laboratory Results - last 24 hr 11/24/20 11/24/20 11/24/20 Range/Units 00:03 00:03 00:03 WBC 7.3 (4.5-11.0) K/uL RBC 4.59 (4.30-5.90) M/uL Hgb 13.6 (12.0-15.0) g/dL Hct 41.4 (40.0-54.0) % MCV 90 (80-98) fL MCH 30 (27-31) pg MCHC 33 (32-36) % Plt Count 276 (150-400) K/uL Neut % (Auto) 65 (36-66) % Lymph % (Auto) 17 L (24-44) % Braxton % (Auto) 13 H (2-6) % Eos % (Auto) 4 (2-4) % Baso % (Auto) 0 (0-1) % PT 10.0 (9.5-12.0) sec INR 0.92 (0.80-1.20) APTT 24.3 L (27.0-36.0) sec Sodium 142 (140-148) mmol/L Potassium 4.1 (3.6-5.2) mmol/L Chloride 104 (100-108) mmol/L Carbon Dioxide 26 (21-32) mmol/L Anion Gap 11.6 (5.0-14.0) mmol/L BUN 19 H (7-18) mg/dL Creatinine 1.1 (0.8-1.3) mg/dL Est Cr Clr Drug Dosing 62.03 mL/min Estimated GFR (MDRD) > 60 (>60) Glucose 107 H (74-106) mg/dL Calcium 8.9 (8.5-10.1) mg/dL Total Bilirubin 0.3 (0.2-1.0) mg/dL AST 24 (15-37) U/L ALT 46 D (12-78) U/L Alkaline Phosphatase 69 (46-116) U/L Troponin I < 0.017 (0.000-0.056) ng/mL Total Protein 7.2 (6.4-8.2) g/dL Albumin 3.7 (3.4-5.0) g/dL Globulin 3.5 (2.3-3.5) g/dL Albumin/Globulin Ratio 1.1 L (1.2-2.2) Influenza Type A RNA (NEGATIVE) RSV RNA (INAAT) (NEGATIVE) Influenza Type B RNA (NEGATIVE) SARS-CoV-2 RNA (SANJEEV) (NEGATIVE) 11/25/20 Range/Units 00:11 WBC (4.5-11.0) K/uL RBC (4.30-5.90) M/uL Hgb (12.0-15.0) g/dL Hct (40.0-54.0) % MCV (80-98) fL MCH (27-31) pg MCHC (32-36) % Plt Count (150-400) K/uL Neut % (Auto) (36-66) % Lymph % (Auto) (24-44) % Braxton % (Auto) (2-6) % Eos % (Auto) (2-4) % Baso % (Auto) (0-1) % PT (9.5-12.0) sec INR (0.80-1.20) APTT (27.0-36.0) sec Sodium (140-148) mmol/L Potassium (3.6-5.2) mmol/L Chloride (100-108) mmol/L Carbon Dioxide (21-32) mmol/L Anion Gap (5.0-14.0) mmol/L BUN (7-18) mg/dL Creatinine (0.8-1.3) mg/dL Est Cr Clr Drug Dosing mL/min Estimated GFR (MDRD) (>60) Glucose (74-106) mg/dL Calcium (8.5-10.1) mg/dL Total Bilirubin (0.2-1.0) mg/dL AST (15-37) U/L ALT (12-78) U/L Alkaline Phosphatase (46-116) U/L Troponin I (0.000-0.056) ng/mL Total Protein (6.4-8.2) g/dL Albumin (3.4-5.0) g/dL Globulin (2.3-3.5) g/dL Albumin/Globulin Ratio (1.2-2.2) Influenza Type A RNA Negative (NEGATIVE) RSV RNA (INAAT) Negative (NEGATIVE) Influenza Type B RNA Negative (NEGATIVE) SARS-CoV-2 RNA (SANJEEV) Positive H (NEGATIVE) Med Orders - Current: Current Medications Acetaminophen (Acetaminophen 500 Mg Tab) 1,000 mg PO Q4H PRN PRN Reason: Pain Aspirin (Aspirin 325 Mg Tab.Ec) 325 mg PO DAILY [facility] Last Admin: 11/25/20 09:18 Dose: 325 mg Documented by: Clopidogrel Bisulfate (Clopidogrel 75 Mg Tab) 75 mg PO DAILY [facility] Clopidogrel Bisulfate (Clopidogrel 75 Mg Tab) 75 mg PO ONETIME ONE Stop: 11/25/20 16:06 Lisinopril (Lisinopril 10 Mg Tab) 10 mg PO DAILY [facility] Last Admin: 11/25/20 09:15 Dose: 10 mg Documented by: Sodium Chloride (Sodium Chloride 0.9% 10 Ml Syringe) 10 ml FLUSH ASDIRECTED PRN PRN Reason: Keep Vein Open Discontinued Medications Aspirin (Aspirin 325 Mg Tab.Ec) 325 mg PO ONETIME ONE Stop: 11/25/20 02:23 Last Admin: 11/25/20 03:01 Dose: 325 mg Documented by: Clopidogrel Bisulfate (Clopidogrel 75 Mg Tab) 300 mg PO ONETIME ONE Stop: 11/25/20 02:23 Last Admin: 11/25/20 03:01 Dose: 300 mg Documented by: Sodium Chloride (Normal Saline) 500 mls @ 150 mls/hr IV BOLUS ONE Stop: 11/25/20 03:07 Last Admin: 11/25/20 01:20 Dose: 150 mls/hr Documented by: Sodium Chloride (Normal Saline) 100 mls @ 4 mls/sec IV ASDIRECTED STA Stop: 11/25/20 03:05 Last Admin: 11/25/20 03:09 Dose: 4 mls/sec Documented by: Sodium Chloride (Normal Saline) 1,000 mls @ 125 mls/hr IV ASDIRECTED SANDY Iopamidol (Iopamidol 755 Mg/Ml 100 Ml Bottle) 100 ml IV . DIRECTED STA Stop: 11/25/20 03:05 Last Admin: 11/25/20 03:09 Dose: 100 ml Documented by: - Exam General: Reports: Alert, Oriented, Cooperative, No Acute Distress Lungs: Reports: Clear to Auscultation, Normal Respiratory Effort Cardiovascular: Reports: Regular Rate, Regular Rhythm, No Murmurs GI/Abdominal Exam: Soft, Non-Tender, No Organomegaly, No Distention Neurological: Reports: Other (Very mild residual left facial weakness and left upper extremity weakness)
[2020-11-26] MEDS ORDERED: Clopidogrel 75 MG Tab PO SCH (09:00)
== END 2020-11-25 16:30 | disposition home or self-care (01) ==
LOC: JP.ED 23:46 → JP.2SS 11-25 03:34
PROVIDERS: ADMIT Family Medicine; ATTEND Hospitalist
DX: G45.9 Transient cerebral ischemic attack, unspecified (principal); U07.1 COVID-19; R29.810 Facial weakness; R20.0 Anesthesia of skin; I66.21 Occlusion and stenosis of right posterior cerebral artery; F19.11 Other psychoactive substance abuse, in remission; F10.11 Alcohol abuse, in remission; I10 Essential (primary) hypertension; Z88.6 Allergy status to analgesic agent; Z72.0 Tobacco use; Z79.82 Long term (current) use of aspirin; Z91.030 Bee allergy status; Z98.1 Arthrodesis status; Z82.3 Family history of stroke; Z98.890 Other specified postprocedural states
CPT/HCPCS: 0241U; 36415; 70450; 70496; 70498; 80053; 84484; 85025; 85610; 85730; 93005; 99217; 99285; A9270; G0378; J7040; Q9967

== ENCOUNTER 2021-04-02 10:53 | Emergency (ER) | payer MEDICARE ==
--- NOTE | 2021-04-02 11:23 | EDM.PDOC ---
ED HPI GENERAL MEDICAL PROBLEM - General Chief Complaint: Neurological Problem Stated Complaint: STROKE SYMPTOMS Time Seen by Provider: 04/02/21 11:00 Source of Information: Reports: Patient, Provider History Limitations: Reports: No Limitations - History of Present Illness INITIAL COMMENTS - FREE TEXT/NARRATIVE: 65-year-old male being treated for inpatient chemical dependency, methamphetamine, has had a history of previous "strokes" and this morning developed left-sided facial numbness, weakness, and some mild left arm numbness. He was sent in for evaluation. No nausea or vomiting, no headache, no visual disturbances. Denies any lower extremity weakness. No recent trauma. Onset: Sudden Duration: Hour(s): (Symptoms started fairly suddenly 1 hour ago) Location: Reports: Face, Upper Extremity, Left Associated Symptoms: Reports: Weakness (Some mild weakness of the left arm). Denies: Fever/Chills, Headaches, Loss of Appetite, Nausea/Vomiting, Shortness of Breath - Related Data Allergies Allergy/AdvReac Type Severity Reaction Status Date / Time bee venom protein (honey bee) Allergy Swelling Verified 04/02/21 11:07 ibuprofen [From Advil] Allergy Rash Verified 04/02/21 11:07 morphine Allergy Cannot Verified 04/02/21 11:07 Remember Home Meds: Home Meds Acetaminophen [Tylenol Extra Strength] 100 mg PO Q4H PRN 02/07/19 [History] Lisinopril 10 mg PO DAILY 02/07/19 [History] Aspirin 81 mg PO DAILY #100 tab.chew 11/25/20 [Rx] Celecoxib [CeleBREX] 200 mg PO DAILY 11/25/20 [History] Clopidogrel [Plavix] 75 mg PO DAILY #30 tablet 11/25/20 [Rx] Past Medical History HEENT History: Reports: Impaired Vision Cardiovascular History: Reports: Hypertension Gastrointestinal History: Reports: Other (See Below) Other Gastrointestinal History: gastric reflux Psychiatric History: Reports: Addiction, Other (See Below) Other Psychiatric History: Meth, 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 - Infectious Disease History Infectious Disease History: Reports: Chicken Pox - Past Surgical History Musculoskeletal Surgical History: Reports: Other (See Below) Other Musculoskeletal Surgeries/Procedures:: Fussed l ankle r hip replacement x 2 r shoulder surgery lead r neck Social & Family History - Family History Family Medical History: No Pertinent Family History - Caffeine Use Caffeine Use: Reports: Coffee, Soda ED ROS GENERAL - Review of Systems Review Of Systems: See Below Constitutional: Denies: Fever, Chills HEENT: Denies: Vision Change Respiratory: Denies: Shortness of Breath Cardiovascular: Denies: Chest Pain GI/Abdominal: Denies: Nausea, Vomiting Skin: Reports: No Symptoms Neurological: Reports: Weakness (As in HPI). Denies: Dizziness, Headache ED EXAM, NEURO - Physical Exam Exam: See Below Exam Limited By: No Limitations General Appearance: Alert, No Apparent Distress Eye Exam: Bilateral Eye: Normal Inspection Head Exam: Atraumatic Neck: Supple, Non-Tender Respiratory/Chest: Lungs Clear Cardiovascular: Regular Rate, Rhythm GI/Abdominal: Soft, Non-Tender Neurological: Alert, Normal Mood/Affect, Other (Patient does appear to have noticeable left facial droop and slight weakness of grasp strength on the left side.) Psychiatric: Normal Affect, Normal Mood Skin Exam: Warm, Dry Course - Vital Signs Last Recorded V/S: Last Vital Signs Temp 97.9 F 04/02/21 11:13 Pulse 82 04/02/21 11:13 Resp 16 04/02/21 11:13 BP 127/67 04/02/21 11:13 Pulse Ox 96 04/02/21 11:13 - Orders/Labs/Meds Meds: Medications Discontinued Medications Generic Name Dose Route Start Last Admin Trade Name Chase PRN Reason Stop Dose Admin Aspirin 325 mg 04/02/21 13:39 Aspirin 325 Mg Tab.Ec PO 04/02/21 13:40 ONETIME ONE - Re-Assessments/Exams Free Text/Narrative Re-Assessment/Exam: 04/02/21 13:[address] negative for acute findings. Patient was improving slowly, I recommended he be evaluated in [place] by interventional neurology but he refused and wanted to be sent back to treatment. He has had this happen before and they have resolved. I discussed this with Dr. Sapp, medical records auditor of [place] and he agreed to accept the patient back if he refused stroke treatment. Departure - Departure Time of Disposition: 13:56 Disposition: DC/Tfer to Other 70 Clinical Impression: Methamphetamine abuse, Left-sided muscle weakness - Discharge Information Referrals: PCP,None [Primary Care Provider] - Forms: ED Department Discharge Care Plan Goals: Patient will be transferred back to [place], close observation can be done and if he worsens significantly he can be reassessed in the emergency room. Sepsis Event Note (ED) - Focused Exam Vital Signs: Vital Signs Temp Pulse Resp BP Pulse Ox 04/02/21 11:13 97.9 F 82 16 127/67 96 04/02/21 11:02 97.9 F 82 16 127/67 96
--- NOTE | 2021-04-02 12:38 | CT ---
Head wo Cont CLINICAL HISTORY: Left facial droop, left weakness COMPARISON: 11/24/2020 TECHNIQUE: Transverse scans were obtained from the base of the skull through the vertex without IV contrast on a multislice, multidetector CT scanner. Auto dosage reduction and iterative reconstruction techniques employed. FINDINGS: No focal abnormal parenchymal densities are identified. There is no mass effect, hemorrhage, or extraaxial collection. The basal cisterns and sulci over the convexities are normal. The ventricles are normal. IMPRESSION: No acute intracranial process
[2021-04-02] MEDS ORDERED: Aspirin 325 MG Tab.EC PO ONE (13:39)
== END 2021-04-02 13:56 | disposition other institution (70) ==
LOC: JP.ED 10:53
DX: F15.10 Other stimulant abuse, uncomplicated (principal); M62.81 Muscle weakness (generalized); I10 Essential (primary) hypertension; Z79.82 Long term (current) use of aspirin; Z79.899 Other long term (current) drug therapy; Z91.030 Bee allergy status; Z88.5 Allergy status to narcotic agent; Z79.02 Long term (current) use of antithrombotics/antiplatelets; Z88.6 Allergy status to analgesic agent
CPT/HCPCS: 70450; 70450-26; 99285-25